=== PATIENT | male | born 1965 | race Caucasian/White ===

== ENCOUNTER 2018-08-17 22:45 | Emergency (ER) | payer BC ==
[2018-08-17] MEDS ORDERED: predniSONE 50 MG TAB PO STA (23:11)
--- NOTE | 2018-08-17 23:23 | XR ---
EXAM: XR Chest, 2 Views CLINICAL HISTORY: ITS.REASON XR Reason: Cough x1 month TECHNIQUE: Frontal and lateral views of the chest. COMPARISON: No relevant prior studies available. FINDINGS: Lungs: No consolidation or mass. Pleural space: No effusion. Heart: No cardiomegaly. Mediastinum: Unremarkable. Bones/joints: No acute findings. IMPRESSION: No acute cardiopulmonary process.
[2018-08-17 23:59] VITALS: BP 106/63; PULSE 84; RESP 18; TEMP 97.8
--- NOTE | 2018-08-18 00:11 | ED ---
URI HPI - General Source: patient Mode of arrival: ambulatory Limitations: no limitations <Chyna Rushing - Last Filed: 08/18/18 04:03> <Josefa Baez - Last Filed: 08/20/18 07:55> - General Chief Complaint: Upper Respiratory Infection Stated Complaint: Fever Time Seen by Provider: 08/17/18 23:00 - History of Present Illness Initial Comments: 53-year-old male patient presents to the emergency department today for evaluation of cough. Patient states he has had cough on and off for the last month. States 2-3 days ago he developed upper respiratory symptoms including nasal congestion and cough. States his children were recently diagnosed with acute bronchitis that he is concerned he may have the same condition. Patient denies any shortness of breath with this. Denies any smoking history. Denies any wheezing. States he has had fever as high as 101F. Patient denies any recent rash, chest pain, abdominal pain, nausea, vomiting, diarrhea, constipation, numbness, tingling, dizziness, weakness, hematuria, dysuria, urinary urgency, urinary frequency, headache, visual changes, or any other com plaints. (Chyna Rushing) - Related Data Home Medications Medication Instructions Recorded Confirmed Multivitamins, Thera [Theragran] 1 each PO DAILY 03/18/15 03/18/15 Previous Rx's Medication Instructions Recorded Promethazine 6.25MG/5Ml [Phenergan 6.25 mg PO Q6H #100 ml 08/18/18 Syrup] predniSONE 50 mg PO DAILY #5 tablet 08/18/18 Allergies Allergy/AdvReac Type Severity Reaction Status Date / Time No Known Allergies Allergy Verified 08/17/18 22:57 Review of Systems ROS Other: All systems not noted in ROS Statement are negative. <Chyna Rushing - Last Filed: 08/18/18 04:03> ROS Other: All systems not noted in ROS Statement are negative. <Josefa Baez - Last Filed: 08/20/18 07:55> ROS Statement: Those systems with pertinent positive or pertinent negative responses have been documented in the HPI. Past Medical History Past Medical History: No Reported History History of Any Multi-Drug Resistant Organisms: None Reported Past Surgical History: Orthopedic Surgery Additional Past Surgical History / Comment(s): ROTATOR CUFF REPAIR Past Anesthesia/Blood Transfusion Reactions: No Reported Reaction Past Psychological History: No Psychological Hx Reported Smoking Status: Never smoker Past Alcohol Use History: Occasional Past Drug Use History: None Reported - Past Family History Mother Family Medical History: No Reported History <Chyna Rushing - Last Filed: 08/18/18 04:03> General Exam Limitations: no limitations General appearance: alert, in no apparent distress, other (Physical well- developed, well-nourished adult male patient in no acute distress. Vital signs upon presentation are temperature 98.3F, pulse 94, respirations 18, blood pressure 115/72, pulse ox 97% on room air.) Eye exam: Present: normal appearance, PERRL, EOMI. Absent: scleral icterus, conjunctival injection, periorbital swelling ENT exam: Present: normal exam, normal oropharynx, mucous membranes moist, TM's normal bilaterally Respiratory exam: Present: normal lung sounds bilaterally. Absent: respiratory distress, wheezes, rales, rhonchi, stridor Cardiovascular Exam: Present: regular rate, normal rhythm, normal heart sounds. Absent: systolic murmur, diastolic murmur, rubs, gallop, clicks GI/Abdominal exam: Present: soft, normal bowel sounds. Absent: distended, tenderness, guarding, rebound, rigid Neurological exam: Present: alert, oriented X3, CN II-XII intact Psychiatric exam: Present: normal affect, normal mood Skin exam: Present: warm, dry, intact, normal color. Absent: rash <Chyna Rushing M - Last Filed: 08/18/18 04:03> Course Vital Signs 08/17/18 08/17/18 08/17/18 22:56 23:12 23:57 Temperature 98.3 F 97.8 F Pulse Rate 94 84 Respiratory 18 20 18 Rate Blood Pressure 115/72 106/63 O2 Sat by Pulse 97 95 Oximetry Medical Decision Making - Radiology Data Radiology results: report reviewed, image reviewed <Chyna Rushing - Last Filed: 08/18/18 04:03> <Josefa Baez - Last Filed: 08/20/18 07:55> - Medical Decision Making 53-year-old male patient presents to the emergency dependency for evaluation of cough and fever. Physical examination reveals clear equal lung sounds. Chest x-ray showed no acute cardiopulmonary disease. Patient does report similar cough on and off for the last month or so we will treat for acute bronchitis with prednisone and give cough medication of promethazine. Patient also reported back pain at time of discharge, states it is chronic, is requesting something for discomfort. He states he does not want any testing or evaluation for this. He'll be given Toradol and Flexeril. Is instructed to follow-up with his primary care physician for recheck in 1-2 days. Return parameters discussed in detail. He verbalizes understanding and agrees with this plan. (Chyna Rushing) I was available for consultation in the emergency department. The history and physical exam were done by the Midlevel Provider. Medical decision making was done by the Midlevel Provider. I have reviewed the chart, however was not consulted specifically or made aware of this patient by the above midlevel provider and did not personally evaluate, interact with, or disposition this patient on the day of their visit Chart was dictated using [employer] dictation software. Attempts were made to correct any dictation errors however some typographical errors may persist. (Josefa Baez) - Radiology Data Two-view x-ray of the chest is obtained. Report was reviewed in its entirety. Impression by Dr. Matias shows no acute cardiopulmonary process. (Chyna Rushing) Disposition Is patient prescribed a controlled substance at d/c from ED?: No Time of Disposition: 00:16 <Chyna Rushing - Last Filed: 08/18/18 04:03> <Josefa Baez - Last Filed: 08/20/18 07:55> Clinical Impression: Acute bronchitis Disposition: HOME SELF-CARE Condition: Good Instructions (If sedation given, give patient instructions): Upper Respiratory Infection (ED), Acute Bronchitis (ED) Additional Instructions: Complete steroid prescription in full. Take medications as directed. Follow-up with her primary care physician for recheck in 1-2 days. Return to the emergency department immediately for any new, worsening, or concerning symptoms. Prescriptions: Promethazine 6.25MG/5Ml [Phenergan Syrup] 6.25 mg PO Q6H #100 ml predniSONE 50 mg PO DAILY #5 tablet Referrals: Lane Love Jr, [Primary Care Provider] - 1-2 days
[2018-08-18] MEDS ORDERED: CYCLOBENZAPRINE 10MG STARTER 3 TAB BTL PO STA (00:18)
[2018-08-18] MEDS ORDERED: KETOROLAC 30 MG/ML 1 ML VIAL IM STA (00:18)
== END 2018-08-18 00:29 | disposition home or self-care (01) ==
LOC: EC 22:45
DX: J20.9 Acute bronchitis, unspecified (principal)
CPT/HCPCS: 99283; 96372; 71046; J7512